=== PATIENT | female | born 1955 | race Caucasian/White ===

== ENCOUNTER → 2018-05-13 | Outpatient (CLI) | payer OTHER ==
--- NOTE | 2018-05-13 13:32 | XR ---
EXAMINATION TYPE: XR elbow limited RT DATE OF EXAM: 05/13/2018 COMPARISON: NONE HISTORY: Pain FINDINGS: Two views of the elbow demonstrate no pathologic joint effusion. No erosive changes. There is no acut e fracture or dislocation. Tiny density posterior to the olecranon within the soft tissues is seen. IMPRESSION: 1. Tiny bony density adjacent to the olecranon within the soft tissues. Tiny avulsion injury in the d ifferential diagnosis correlate with point tenderness. If warranted follow-up MRI could BE obtained.
--- NOTE | 2018-05-13 13:34 | XR ---
EXAMINATION TYPE: XR shoulder limited RT DATE OF EXAM: 05/13/2018 COMPARISON: NONE HISTORY: Pain TECHNIQUE: Two views are submitted. FINDINGS: The osseous structures are intact. There is no acute fracture or dislocation. The AC joint is maint ained. Diffuse osteopenia. IMPRESSION: 1. No acute process. If there is concern for rotator cuff injury correlate with MRI.
== END | disposition home or self-care (01) ==
LOC: RADXRMAIN 12:52
PROVIDERS: ATTEND Family Medicine
DX: M85.831 Other specified disorders of bone density and structure, right forearm (principal); M25.511 Pain in right shoulder

== ENCOUNTER 2018-07-20 04:19 | Emergency (ER) | payer OTHER ==
[2018-07-20 05:55] LABS: Basophils # (A) 0.1 k/uL (0-0.2); Basophils % (A) 1 %; Eosinophils # (A) 0.2 k/uL (0-0.7); Eosinophils % (A) 5 %; HCT 37.8 % (34.0-46.0); HGB 13.1 gm/dL (11.4-16.0); Lymphocytes # (A) 1.2 k/uL (1.0-4.8); Lymphocytes % (A) 29 %; MCH 32.5 pg (25.0-35.0); MCHC 34.7 g/dL (31.0-37.0); MCV 93.7 fL (80.0-100.0); Mean Platelet Volume 6.6; Monocytes # (A) 0.3 k/uL (0-1.0); Monocytes % (A) 7 %; Neutrophils # (A) 2.4 k/uL (1.3-7.7); Neutrophils % (A) 55 %; Platelet Count 259 k/uL (150-450); RBC 4.03 m/uL (3.80-5.40); RDW 12.8 % (11.5-15.5); WBC 4.4 k/uL (3.8-10.6)
[2018-07-20 06:10] LABS: ALT 23 U/L (9-52); AST 31 U/L (14-36); Albumin 3.9 g/dL (3.5-5.0); Alkaline Phosphatase 59 U/L (38-126); Anion Gap 6 mmol/L; Blood Urea Nitrogen 11 mg/dL (7-17); Calcium 9.5 mg/dL (8.4-10.2); Carbon Dioxide 24 mmol/L (22-30); Chloride 110 mmol/L (98-107); Glucose 93 mg/dL (74-99); Sodium 140 mmol/L (137-145); Total Bilirubin 0.8 mg/dL (0.2-1.3); Total Protein 6.5 g/dL (6.3-8.2)
[2018-07-20 06:19] LABS: Potassium 4.5 mmol/L (3.5-5.1)
[2018-07-20 06:31] LABS: Partial Thromboplastin Time 23.8 sec (22.0-30.0); Prothrombin Time 10.3 sec (9.0-12.0)
[2018-07-20 06:43] LABS: Creatine Kinase 39 U/L (30-135)
[2018-07-20 06:56] LABS: Creatine Kinase MB 0.6 ng/mL (0.0-2.4); Troponin I <0.012 ng/mL (0.000-0.034)
--- NOTE | 2018-07-20 07:18 | XR ---
EXAMINATION TYPE: XR chest 2V DATE OF EXAM: 07/20/2018 COMPARISON: NONE HISTORY: Chest pain TECHNIQUE: Frontal and lateral views of the chest are obtained. FINDINGS: There is no focal air space opacity, pleural effusion, or pneumothorax seen. The cardiac silhouette size is within normal limits. The osseous structures are intact. IMPRESSION: No acute cardiopulmonary process.
--- NOTE | 2018-07-20 09:12 | ED ---
Chest Pain HPI - General Chief Complaint: Chest Pain Stated Complaint: Chest Pain Time Seen by Provider: 07/20/18 07:51 Source: patient Mode of arrival: ambulatory Limitations: no limitations - History of Present Illness Initial Comments: This is a 62-year-old female the ER for evaluation. She presents today for evaluation of chest pain. Patient is anterior chest pain rating to back cough, symptoms 5-6 days. Patient was seen by family doctor, and sent to ER for evaluation. Patient has continued symptoms currently. No shortness of breath. No recent fever cough or congestion. Patient states she has had similar symptoms with prior diagnosis of bronchitis. Patient has no high blood pressure normal cholesterol no diabetes no significant family history of heart disease. MD Complaint: chest pain -: days(s) (5) Pain Location: substernal, right chest Pain Radiation: back Severity: mild Severity scale (1-10): 3 Quality: tightness Consistency: constant Improves With: nothing Worsens With: nothing Context: other (None) Other Symptoms: cough Treatments Prior to Arrival: none - Related Data Allergies Allergy/AdvReac Type Severity Reaction Status Date / Time No Known Allergies Allergy Verified 07/20/18 08:00 Review of Systems ROS Statement: Those systems with pertinent positive or pertinent negative responses have been documented in the HPI. ROS Other: All systems not noted in ROS Statement are negative. General Exam Limitations: no limitations General appearance: alert, in no apparent distress Head exam: Present: atraumatic, normocephalic, normal inspection Eye exam: Present: normal appearance, PERRL, EOMI. Absent: scleral icterus, conjunctival injection, periorbital swelling ENT exam: Present: normal exam, mucous membranes moist Neck exam: Present: normal inspection. Absent: tenderness, meningismus, lymphadenopathy Respiratory exam: Present: normal lung sounds bilaterally. Absent: respiratory distress, wheezes, rales, rhonchi, stridor Cardiovascular Exam: Present: regular rate, normal rhythm, normal heart sounds. Absent: systolic murmur, diastolic murmur, rubs, gallop, clicks GI/Abdominal exam: Present: soft, normal bowel sounds. Absent: distended, tenderness, guarding, rebound, rigid Extremities exam: Present: normal inspection, full ROM, normal capillary refill. Absent: tenderness, pedal edema, joint swelling, calf tenderness Back exam: Present: normal inspection Neurological exam: Present: alert, oriented X3, CN II-XII intact Psychiatric exam: Present: normal affect, normal mood Skin exam: Present: warm, dry, intact, normal color. Absent: rash Course - Reevaluation(s) Reevaluation #1: Medical record is reviewed noncontributory Patient spoke at length regarding symptoms and cause. Findings. Patient is in no acute distress, questions are answered Chest Pain MDM - MDM 62 female the ER for evasive chest pain patient has persistent dyspnea CT is negative for chest pain here in the emergency room. A patient is informed of results, CT EKG troponin negative. Patient can be discharged home Disposition Clinical Impression: Chest pain Disposition: HOME SELF-CARE Condition: Good Instructions: Chest Pain (ED) Is patient prescribed a controlled substance at d/c from ED?: No Referrals: Montserrat Loo MD [Primary Care Provider] - 1-2 days
--- NOTE | 2018-07-20 09:17 | CT ---
EXAMINATION TYPE: CT angio chest DATE OF EXAM: 07/20/2018 COMPARISON: Chest x-ray earlier today. HISTORY: Chest pains CT DLP: 215.6 mGycm. Automated Exposure Control for Dose Reduction was Utilized. CONTRAST: CTA scan of the thorax is performed with IV Contrast, patient injected with 100 mL of Isovue 370, pul monary embolism protocol. MIP Images are created on CT scanner and reviewed. FINDINGS: LUNGS: Mild biapical pleural/parenchymal scarring is seen. There is mild linear scarring in bilateral lung bases. No suspicious focal consolidation or groundglass opacity is seen. No suspicious parenchy mal nodules or masses are identified. No pleural effusion or pneumothorax is noted. MEDIASTINUM: There is satisfactory enhancement of the pulmonary artery and its branches, there is no CT evidence for pulmonary embolism. There are no greater than 1 cm hilar or mediastinal lymph nodes. No cardiomegaly or pericardial effusion is seen. OTHER: Please refer to same day CT abdomen and pelvis report for complete details on upper abdominal findings. IMPRESSION: No CT evidence for acute pulmonary embolism. Mild chronic parenchymal change without velarde spicious acute pulmonary process.
--- NOTE | 2018-07-20 09:20 | CT ---
EXAMINATION TYPE: CT abdomen pelvis w con DATE OF EXAM: 07/20/2018 HISTORY: Chest pains CT DLP: 340.6mGycm Automated Exposure Control for Dose Reduction was Utilized. CONTRAST: CT scan of the abdomen and pelvis is performed without oral but with IV Contrast, patient injected wi th 100 mL of Isovue 370. COMPARISON: None FINDINGS: LUNG BASES: Please refer to same day CTA chest report complete details on lung bases. LIVER/GB: No significant abnormality is appreciated. PANCREAS: No significant abnormality is seen. SPLEEN: No significant abnormality is seen. ADRENALS: No significant abnormality is seen. KIDNEYS: No significant abnormality is seen. BOWEL: Evaluation of bowel is noted suboptimal secondary to lack of enteric contrast and patient havi ng little intra-abdominal fat. There is no suspicious small or large bowel dilatation. Stomach is poo rly distended and thus suboptimally evaluated. Amount of fecal material is somewhat prominent through out portions of colon. Findings consistent with mild colonic fecal stasis. UTERUS/ADNEXA: Uterus is surgically absent or markedly atrophic. Few scattered pelvic phleboliths are noted. LYMPH NODES: No greater than 1cm abdominal or pelvic lymph nodes are appreciated. OSSEOUS STRUCTURES: No significant abnormality is seen. OTHER: No significant additional abnormality is seen. IMPRESSION: No significant acute finding is seen to account for patient's clinical symptoms.
[2018-07-20] MEDS ORDERED: DEXAMETHASONE SOD PHOSPHATE 10 MG/ML 1 ML VIAL IV STA (09:26)
[2018-07-20] MEDS ORDERED: KETOROLAC 30 MG/ML 1 ML VIAL IVP STA (09:26)
== END 2018-07-20 09:50 | disposition home or self-care (01) ==
LOC: EC 04:19
DX: R07.2 Precordial pain (principal); R05 Cough; Z79.890 Hormone replacement therapy
CPT/HCPCS: 36415; 80053; 82550; 82553; 83690; 83735; 84484; 85025; 85610; 85730; 71046; 71275; 74177; 99285; 96374; 96375; J1100; J1885; Q9967

== ENCOUNTER → 2018-11-02 | Outpatient (CLI) | payer MEDICARE, OTHER ==
[2018-11-02 16:34] LABS: Albumin 4.3 g/dL (3.80-4.90); Albumin/Globulin Ratio 2.39 (1.60-3.17); Anion Gap 7.3 mmol/L (4.00-12.00); Calcium 9.3 mg/dL (8.7-10.3); Carbon Dioxide 27.7 mmol/L (21.6-31.8); Globulin 1.8 g/dL (1.6-3.3); Potassium 4.3 mmol/L (3.5-5.5); Total Bilirubin 0.7 mg/dL (0.2-1.2); Total Protein 6.1 g/dL (6.2-8.2)
[2018-11-02 16:36] LABS: Vitamin D 25 Hydroxy 43.2 ng/mL (30.0-100.0)
[2018-11-02 17:10] LABS: Parathyroid Hormone Intact 42.7 pg/mL (14.0-72.0)
== END ==
LOC: LABWHC1 08:28
PROVIDERS: ATTEND Internal Medicine Endocrinology, Diabetes & Metabolism
DX: M81.0 Age-related osteoporosis without current pathological fracture (principal)
CPT/HCPCS: 36415; 80053; 82306; 82523; 83970

== ENCOUNTER → 2020-01-23 | Outpatient (CLI) | payer OTHER, MEDICARE | END | disposition home or self-care (01) | LOC: LABWHC1 10:26 | PROVIDERS: ATTEND Family Medicine | DX: Z03.818 Encounter for observation for suspected exposure to other biological agents ruled out (principal) | CPT/HCPCS: U0003; C9803 ==

== ENCOUNTER 2020-02-19 11:57 | Emergency (ER) | payer OTHER, MEDICARE ==
[2020-02-19 12:16] VITALS: TEMP 98
[2020-02-19] MEDS ORDERED: methylPREDNISolone SOD SUCCI 125 MG/2 ML VIAL IV STA (12:29)
[2020-02-19] MEDS ORDERED: FAMOTIDINE 20 MG/2 ML VIAL IV STA (12:30)
[2020-02-19] MEDS ORDERED: diphenhydrAMINE 50 MG/ML 1 ML VIAL IVP STA (12:30)
[2020-02-19] MEDS ORDERED: SODIUM CHLORIDE 0.9% 500 ML 500 ML IV STA (12:35)
[2020-02-19 12:38] VITALS: RESP 18
--- NOTE | 2020-02-19 13:24 | ED ---
Skin/Abscess/FB HPI - General Chief complaint: Skin/Abscess/Foreign Body Stated complaint: poss insect bite/hives & swelling Time Seen by Provider: 02/19/20 12:29 Source: patient Mode of arrival: ambulatory Limitations: no limitations - History of Present Illness Initial comments: 64yo female presenting today for chief complaint of rash. Patient states she was in her garden just 1 hour prior to presentation when she felt a pain in her left hand through her glove. Patient states that she noticed a welt. Patient believes she was stung by something. Patient states that she developed hives all over her body. She denied any wheezing difficulty breathing nausea vomiting or abdominal pain patient denies any lightheadedness or dizziness. Patient st ates that she does have a known ALLERGY to bees. Patient states that she does not carry an EpiPen. When rash spread patient decided as best she came to the emergency department for evaluation. Patient arrival appears well nontoxic in no acute distress. Patient is afebrile and denies rash prior to the incident. - Related Data Previous Rx's Medication Instructions Recorded EPINEPHrine (Auto Inject) [Epipen] 0.3 mg IM ONCE PRN 1 Days #2 pen 02/19/20 predniSONE 50 mg PO DAILY 4 Days #4 tab 02/19/20 Allergies Allergy/AdvReac Type Severity Reaction Status Date / Time No Known Allergies Allergy Verified 07/20/18 08:00 Review of Systems ROS Statement: Those systems with pertinent positive or pertinent negative responses have been documented in the HPI. ROS Other: All systems not noted in ROS Statement are negative. Past Medical History Past Medical History: Thyroid Disorder History of Any Multi-Drug Resistant Organisms: None Reported Past Surgical History: Hysterectomy Additional Past Surgical History / Comment(s): bladder Past Psychological History: No Psychological Hx Reported Smoking Status: Never smoker Past Alcohol Use History: None Reported Past Drug Use History: None Reported General Exam - General Exam Comments Initial Comments: General: The patient is awake and alert, in no distress Eye: Pupils are equal, round and reactive to light, extra-ocular movements are intact. No nystagmus. There is normal conjunctiva bilaterally. No signs of icterus. Ears, nose, mouth and throat: There are moist mucous membranes and no oral lesions. Neck: The neck is supple, there is no tenderness or JVD. Cardiovascular: There is a regular rate and rhythm. No murmur, rub or gallop is appreciated. Respiratory: Lungs are clear to auscultation, respirations are non-labored, breath sounds are equal. No wheezes, stridor, rales, or rhonchi. Gastrointestinal: Raised erythematous wheals and crops on patient's abdomen thighs and lower chest as well as his back. No vesicular lesions or bli stering. Soft, non-distended, non-tender abdomen without masses or organomegaly noted. There is no rebound or guarding present. Musculoskeletal: Normal ROM, no tenderness. Strength 5/5. Sensation intact. Pulses equal bilaterally 2+. Neurological: A&O x 3. CN II-XII intact, There are no obvious motor or sensory deficits. Coordination appears grossly intact. Speech is normal. Skin: Skin is warm and dry and no rashes or lesions are noted. Psychiatric: Cooperative, appropriate mood & affect, normal judgment. Limitations: no limitations Course Vital Signs 02/19/20 02/19/20 12:13 12:37 Temperature 98.0 F Pulse Rate 118 H 103 H Respiratory 20 18 Rate Blood Pressure 105/60 O2 Sat by Pulse 97 98 Oximetry Medical Decision Making - Medical Decision Making 64yofemale presenting today for chief complaint of rash. Patient states that she was stung by an insect on her and she states she is ALLERGIC to bees. There is obvious urticaria physical examination patient shows no signs of respiratory distress or surgical lip tongue swelling and no oral involvement. Patient does not have any complaints of nausea vomiting abdominal pain nor diarrhea. Patient VS stable. After Solu-Medrol Pepcid Benadryl patient states she felt much better on reevaluation the rash is noted to be significantly improved. Patient VS remain stable. Discussed case with Dr. Kelsey who is agreeable to care plan and discharge. Patient be placed on prednisone for 4 days to insure no delayed reaction as well as given an P pen in case needed for further future r eactions I did educate patient on the appropriate use and if the EpiPen is U she is to immediate return to the emergency department. Disposition Clinical Impression: Insect bite, Allergic reaction, Urticaria Disposition: HOME SELF-CARE Condition: Good Instructions (If sedation given, give patient instructions): Urticaria (ED), Anaphylaxis (ED) Additional Instructions: Please use medication as discussed. Please follow-up with family doctor in the next 2 days.. Please return to emergency room if the symptoms increase or worsen or for any other concerns. Prescriptions: EPINEPHrine (Auto Inject) [Epipen] 0.3 mg IM ONCE PRN 1 Days #2 pen PRN Reason: Anaphylaxis predniSONE 50 mg PO DAILY 4 Days #4 tab Is patient prescribed a controlled substance at d/c from ED?: No Referrals: Montserrat Loo MD [Primary Care Provider] - 1-2 days Time of Disposition: 13:24
[2020-02-19 13:54] VITALS: BP 101/64; PULSE 75
== END 2020-02-19 13:53 | disposition home or self-care (01) ==
LOC: EC 11:57
DX: L50.9 Urticaria, unspecified (principal); T63.481A Toxic effect of venom of other arthropod, accidental (unintentional), initial encounter
CPT/HCPCS: 99282; 96374; 96375 ×2; J1200; J2930

== ENCOUNTER → 2020-04-18 | Outpatient (CLI) | payer OTHER, MEDICARE ==
--- NOTE | 2020-04-22 08:58 | MM ---
Reason for exam: screening (asymptomatic). Last mammogram was performed 2 years and 10 months ago. History: Patient is postmenopausal and history of other cancer. Physical Findings: A clinical breast exam by your physician is recommended on an annual basis and results should be correlated with mammographic findings. MG Screening Mammo w CAD Bilateral CC and MLO view(s) were taken. Prior study comparison: June 08, 2017, mammogram. September 29, 2014, mammogram. The breast tissue is heterogeneously dense. This may lower the sensitivity of mammography. Finding: There are typically benign vascular calcifications in both breasts. No significant changes in finding since June 08, 2017 and September 29, 2014. ASSESSMENT: Benign, BI-RAD 2 RECOMMENDATION: Routine screening mammogram of both breasts in 1 year.
== END | disposition home or self-care (01) ==
LOC: RADMAMWWP 14:28
PROVIDERS: ATTEND Family Medicine
DX: Z12.31 Encounter for screening mammogram for malignant neoplasm of breast (principal)
CPT/HCPCS: 77067

== ENCOUNTER → 2020-07-09 | Outpatient (CLI) | payer OTHER, MEDICARE | END | disposition home or self-care (01) | LOC: LABWHC1 09:10 | PROVIDERS: ATTEND Family Medicine | DX: Z20.828 Contact with and (suspected) exposure to other viral communicable diseases (principal) | CPT/HCPCS: U0003; C9803 ==

== ENCOUNTER → 2020-08-09 | Outpatient (CLI) | payer OTHER, MEDICARE ==
[2020-08-09 17:05] LABS: Thyroid Peroxidase Antibodies 28.2 U/mL (0.0-60.0)
[2020-08-09 17:09] LABS: Progesterone 2.8 ng/mL
[2020-08-09 17:10] LABS: DHEA Sulfate 173.2 ug/dL (26.0-430.0)
[2020-08-09 17:26] LABS: African American GFR (CKD) 110.1 (60.0-200.0); Albumin 4.5 g/dL (3.80-4.90); Albumin/Globulin Ratio 2.65 (1.60-3.17); Anion Gap 5.8 mmol/L (4.00-12.00); BUN/Creat Ratio 18.33 Ratio (12.00-20.00); Calcium 9.4 mg/dL (8.7-10.3); Carbon Dioxide 29.2 mmol/L (21.6-31.8); Globulin 1.7 g/dL (1.6-3.3); Potassium 4.2 mmol/L (3.5-5.5); Total Bilirubin 0.7 mg/dL (0.3-1.2); Total Protein 6.2 g/dL (6.2-8.2)
[2020-08-09 17:34] LABS: Estradiol 24.6 pg/mL
== END | disposition home or self-care (01) ==
LOC: LABWHC1 08:38
PROVIDERS: ATTEND Internal Medicine Endocrinology, Diabetes & Metabolism
DX: E03.8 Other specified hypothyroidism (principal); M81.0 Age-related osteoporosis without current pathological fracture; E23.0 Hypopituitarism
CPT/HCPCS: 36415; 80053; 81596; 82306; 82627; 82670; 83970; 84144; 84402; 84403; 84436; 84443; 84480; 84481; 86376; 86800

== ENCOUNTER → 2020-08-09 | Outpatient (CLI) | payer OTHER, MEDICARE ==
--- NOTE | 2020-08-09 11:30 | BD ---
EXAMINATION TYPE: Axial Bone Density DATE OF EXAM: 08/09/2020 COMPARISON: NONE CLINICAL HISTORY: Height: 5 FT 4 1/2 IN Weight: 122 FRAX RISK QUESTIONS: Alcohol (3 or more units per day): NO Family History (Parent hip fracture): YES Glucocorticoids (More than 3mos): NO (Ex: prednisone, prednisolone, methylprednisolone, dexamethasone, and hydrocortisone). History of Fracture in Adulthood: NO Secondary Osteoporosis: 1. Type 1 Diabetes: NO 2. Hyperthyroidism: NO 3. Menopause before 45: NO 4. Malnutrition: NO 5. Chronic liver disease: NO Rheumatoid Arthritis: NO Current Tobacco Use: NO RISK FACTORS HISTORY OF: Family History of Osteoporosis: NO Active: YES Diet low in dairy products/other sources of calcium: NO Postmenopausal woman: AGE 50-53 Take estrogen and/or progesterone medications: PROGESTERONE How lon MONTHS Lost more than 2 inches in height since high school: YES MEDICATIONS: Thyroid Medications: YES Which medication: LEVOTHYROXINE How Lon YEARS Additional Medications: LEVOTHYROXINE, PROGESTERONE Additional History: RADIATED THYROID AGE 43 EXAM MEASUREMENTS: Bone mineral densitometry was performed using the [employer] System. Bone mineral density as measured about the Lumbar spine is: ----- L1-L4(G/cm2): 0.929 T Score Values are as follows: ----- L2: -2.3 ----- L3: -1.7 ----- L4: -1.9 ----- L1-L4: -2.1 PREV DONE ELSEWHERE Bone mineral density about the R hip (g/cm2): 0.696 Bone mineral density about the L hip (g/cm2): 0.709 T Score values are as follows: -----R Neck: -2.5 -----L Neck: -2.4 -----R Total: -2.0 -----L Total: -1.6 PREV DONE ELSEWHERE IMPRESSION: Osteopenia NOTE: T-SCORE=SD OF THE YOUNG ADULT MEAN.
== END | disposition home or self-care (01) ==
LOC: RADBDWWP 07:44
PROVIDERS: ATTEND Internal Medicine Endocrinology, Diabetes & Metabolism
DX: M85.80 Other specified disorders of bone density and structure, unspecified site (principal); M81.0 Age-related osteoporosis without current pathological fracture
CPT/HCPCS: 77080

== ENCOUNTER → 2020-10-04 | Outpatient (CLI) | payer OTHER, MEDICARE ==
--- NOTE | 2020-10-04 09:57 | US ---
EXAMINATION TYPE: US duplex aorta DATE OF EXAM: 10/04/2020 COMPARISON: NONE CLINICAL HISTORY: Z13.6 Encounter for screening for cardiovascular d. AAA screenin family hx. EXAM MEASUREMENTS: Abdominal Aorta: Proximal: 1.7 x 1.8 cm Mid: 1.1 x 1.3 cm Distal: 1.2 x 1.6 cm Bifurcation: .7cm .8cm There is atherosclerotic change of the aorta. IMPRESSION: No diagnostic evidence of aneurysm.
== END | disposition home or self-care (01) ==
LOC: RADUSWWP 09:33
PROVIDERS: ATTEND Family Medicine
DX: Z13.6 Encounter for screening for cardiovascular disorders (principal)
CPT/HCPCS: 93979

== ENCOUNTER → 2020-10-11 | Outpatient (CLI) | payer OTHER, MEDICARE ==
--- NOTE | 2020-10-11 16:15 | XR ---
Right RIBS HISTORY: R07.82 5 views the right ribs There is no evident displaced rib fracture. Bone mineralization is maintained. No evident pneumothora x or pleural effusion. There is a spinal curvature present. IMPRESSION: No acute abnormalities evident. Bone scan may be of increased sensitivity as indicated.
== END | disposition home or self-care (01) ==
LOC: RADXRMAIN 11:52
PROVIDERS: ATTEND Nurse Practitioner
DX: R07.82 Intercostal pain (principal)

== ENCOUNTER → 2020-11-15 | Outpatient (CLI) | payer OTHER, MEDICARE ==
--- NOTE | 2020-11-16 02:52 | MR ---
EXAMINATION TYPE: MR chest wo con DATE OF EXAM: 11/15/2020 COMPARISON: None HISTORY: Palpable masses right side of ribs, marker placed on 3 areas. Multiplanar multiecho imaging of the chest was performed without contrast. There are 3 markers placed on the right lateral side of the lower chest that is the area of concern. Liver has normal size and contour without a focal defect. There is no sign of pleural effusion. On th e STIR images there are 2 adjacent ribs in the lateral anterior lower chest on the right side that singh ve increased signal. There is also slight thickening and these could be healing rib fractures. These are seen on STIR coronal image 11 and 16. There is no pathologic fluid collection. Kidneys have normal size and contour. There is no hydronephr osis. There is no sign of ascites. IMPRESSION: 2 adjacent ribs on the right side have increased signal on the STIR images that could be healing nond isplaced fractures.
== END | disposition home or self-care (01) ==
LOC: RADMRIMAIN 20:31
PROVIDERS: ATTEND Family Medicine
DX: R22.2 Localized swelling, mass and lump, trunk (principal)
CPT/HCPCS: 71550

== ENCOUNTER → 2021-05-01 | Outpatient (CLI) | payer OTHER, MEDICARE | END | disposition home or self-care (01) | LOC: LABWHC1 16:18 | PROVIDERS: ATTEND Family Medicine | DX: Z20.822 Contact with and (suspected) exposure to COVID-19 (principal) | CPT/HCPCS: U0003; C9803 ==

== ENCOUNTER → 2021-11-04 | Outpatient (CLI) | payer MEDICARE, BC ==
[2021-11-04 14:18] LABS: Basophils # (A) 0.06 X 10*3/uL (0.00-0.10); Basophils % (A) 0.9 %; Eosinophils # (A) 0.04 X 10*3/uL (0.04-0.35); Eosinophils % (A) 0.6 %; HCT 37.7 % (37.2-46.3); HGB 12.8 g/dL (12.0-15.0); Immature Grans, Automated 0.2 %; Lymphocytes # (A) 1.52 X 10*3/uL (0.90-5.00); Lymphocytes % (A) 23.3 %; MCH 31.8 pg (27.0-32.0); MCV 93.5 fL (80.0-97.0); Monocytes # (A) 0.58 X 10*3/uL (0.20-1.00); Monocytes % (A) 8.9 %; NRBC Per 100 WBC 0 /100 WBCS (0.0-0.0); Neutrophils # (A) 4.32 X 10*3/uL (1.80-7.70); Neutrophils % (A) 66.1 %; Platelet Count 285 X 10*3/uL (140-440); RBC 4.03 X 10*6/uL (4.10-5.20); RDW 12.5 % (11.5-14.5); WBC 6.53 X 10*3/uL (4.50-10.00)
[2021-11-04 14:44] LABS: Thyroid Peroxidase Antibodies <9.0 U/mL (0.0-33.0)
[2021-11-04 14:56] LABS: ALT 16 U/L (8-44); AST 16 U/L (13-35); African American GFR (CKD) 115.3 (60.0-200.0); Albumin 4.4 g/dL (3.8-4.9); Alkaline Phosphatase 72 U/L (41-126); Blood Urea Nitrogen 7.6 mg/dL (9.0-27.0); Calcium 9.3 mg/dL (8.7-10.3); Carbon Dioxide 25.4 mmol/L (20.0-27.5); Chloride 101 mmol/L (96-109); GGT <10 U/L (0-38); Globulin 2.1 g/dL (1.6-3.3); Glucose 94 mg/dL (70-110); Iron 88 ug/dL (50-170); Non-African American GFR(CKD) 99.4 (60.0-200.0); Potassium 4.4 mmol/L (3.5-5.5); Sodium 135 mmol/L (135-145); Total Protein 6.5 g/dL (6.2-8.2)
[2021-11-04 15:08] LABS: C Reactive Protein, High Sens <0.150 mg/L (0.000-3.000)
[2021-11-04 16:17] LABS: Erythrocyte Sedimentation Rate 3 mm/Hr (0-30)
[2021-11-04 18:11] LABS: Insulin Level 5.3 mIU/mL (3.0-25.0)
[2021-11-05 10:49] LABS: Lead, Blood 0.5 ug/dL (<5.0)
[2021-11-06 08:29] LABS: Methylmalonic Acid 0.11 umol/L (<0.40)
== END | disposition home or self-care (01) ==
LOC: LABWHC1 08:57
PROVIDERS: ATTEND Internal Medicine
DX: Z00.00 Encounter for general adult medical examination without abnormal findings (principal); H43.399 Other vitreous opacities, unspecified eye; K58.0 Irritable bowel syndrome with diarrhea; M85.80 Other specified disorders of bone density and structure, unspecified site; Z86.19 Personal history of other infectious and parasitic diseases
CPT/HCPCS: 36415; 80053; 82306; 82525; 82607; 82728; 82747; 82977; 83036; 83090; 83525; 83540; 83655; 83735; 83825; 83921; 84255; 84439; 84443; 84481; 84482; 84630; 85025; 85652; 86141; 86376; 86800

== ENCOUNTER → 2021-12-04 | Outpatient (CLI) | payer MEDICARE, BC | END | disposition home or self-care (01) | LOC: LABWHC1 17:26 | PROVIDERS: ATTEND Internal Medicine | DX: K58.0 Irritable bowel syndrome with diarrhea (principal); Z86.19 Personal history of other infectious and parasitic diseases | CPT/HCPCS: 87338 ==

== ENCOUNTER 2023-03-15 19:12 | Emergency (ER) | payer MEDICARE, BC ==
--- NOTE | 2023-03-15 19:46 | ED ---
General Adult HPI - General Chief complaint: Urogenital Stated complaint: UTI Time Seen by Provider: 03/15/23 19:20 Source: patient, RN notes reviewed, old records reviewed Mode of arrival: ambulatory Limitations: no limitations - History of Present Illness Initial comments: This is a 67-year-old female who presents emergency Department stating about no on today she started having some dysuria and urinary frequency. Patient states she had a little bit of pain up in the suprapubic region as well. Patient denies any back pain. Patient denies any fever chills. Patient states she was mildly nauseated as well. - Related Data Previous Rx's Medication Instructions Recorded EPINEPHrine (Auto Inject) [Epipen] 0.3 mg IM ONCE PRN 1 Days #2 pen 02/19/20 predniSONE 50 mg PO DAILY 4 Days #4 tab 02/19/20 Sulfamethox-Tmp 800-160Mg [Bactrim 1 each PO Q12HR #14 tab 03/15/23 DS 800-160 mg] Allergies Allergy/AdvReac Type Severity Reaction Status Date / Time No Known Allergies Allergy Verified 03/15/23 19:18 Review of Systems ROS Statement: Those systems with pertinent positive or pertinent negative responses have been documented in the HPI. ROS Other: All systems not noted in ROS Statement are negative. Past Medical History Past Medical History: Thyroid Disorder History of Any Multi-Drug Resistant Organisms: None Reported Past Surgical History: Hysterectomy Additional Past Surgical History / Comment(s): bladder Past Psychological History: No Psychological Hx Reported Smoking Status: Never smoker Past Alcohol Use History: None Reported Past Drug Use History: None Reported General Exam - General Exam Comments Initial Comments: GENERAL: Patient is well-developed and well-nourished. Patient is nontoxic and well- hydrated and is in mild distress. ENT: Neck is soft and supple. No significant lymphadenopathy is noted. Oropharynx is clear. Moist mucous membranes. Neck has full range of motion without eliciting any pain. EYES: The sclera were anicteric and conjunctiva were pink and moist. Extraocular movements were intact and pupils were equal round and reactive to light. Eyelids were unremarkable. ABDOMEN: Soft and nontender with normal bowel sounds. SKIN: Skin is clear with no lesions or rashes and otherwise unremarkable. NEUROLOGIC: Patient is alert and oriented x3. Cranial nerves II through XII are grossly intact. Motor and sensory are also intact. Normal speech, volume and content. Symmetrical smile. MUSCULOSKELETAL: Normal extremities with adequate strength and full range of motion. Patient has no CVA tenderness LYMPHATICS: No significant lymphadenopathy is noted PSYCHIATRIC: Normal psychiatric evaluation. Limitations: no limitations Course Vital Signs 03/15/23 19:17 Temperature 97.8 F Pulse Rate 87 Respiratory 18 Rate Blood Pressure 109/68 O2 Sat by Pulse 98 Oximetry Medical Decision Making - Medical Decision Making Was pt. sent in by a medical professional or institution (, [facility], BRIDGE INSPECTOR, urgent care, hospital, or alf...) When possible be specific @ -No Did you speak to anyone other than the patient for history (EMS, parent, family, police, friend...)? What history was obtained from this source @ -No Did you review nursing and triage notes (agree or disagree)? Why? @ -I reviewed and agree with nursing and triage notes Were old charts reviewed (outside hosp., previous admission, EMS record, old EKG, old radiological studies, urgent care reports/EKG's, alf records)? Report findings @ -No old charts were reviewed Differential Diagnosis (chest pain, altered mental status, abdominal pain women, abdominal pain men, vaginal bleeding, weakness, fever, dyspnea, syncope, headache, dizziness, GI bleed, back pain, seizure, CVA, palpatations, mental health, musculoskeletal)? @ -Differential Abdominal Pain Women: Appendicitis, Cholecystitis, diverticulosis, ischemic bowel, pancreatitis, UTI, AAA, incarcerated hernia, bowel obstruction, constipation, inflammatory bowel, hepatitis, peptic ulcer disease, splenic infarction, perforated viscus, vulvitis, ovarian torsion, PID, kidney stone, placenta abruption, this is not meant to be an all-inclusive list EKG interpreted by me (3pts min.). @ -As above X-rays interpreted by me (1pt min.). @ -None done CT interpreted by me (1pt min.). @ -None done U/S interpreted by me (1pt. min.). @ -None done What testing was considered but not performed or refused? (CT, X-rays, U/S, l abs)? Why? @ -None What meds were considered but not given or refused? Why? @ -None Did you discuss the management of the patient with other professionals (professionals i.e. , PA, BRIDGE INSPECTOR, lab, RT, psych nurse, nephrology social worker, linoleum layer apprentice, teacher, president and chief commercial officer, manager case)? Give summary @ -No Was smoking cessation discussed for >3mins.? @ -No Was critical care preformed (if so, how long)? @ -No Were there social determinants of health that impacted care today? How? (Homelessness, low income, unemployed, alcoholism, drug addiction, transportation, low edu. Level, literacy, decrease access to med. care, half-way, rehab)? @ -No Was there de-escalation of care discussed even if they declined (Discuss DNR or withdrawal of care, Hospice)? DNR status @ -No What co-morbidities impacted this encounter? (DM, HTN, Smoking, COPD, CAD, Cancer, CVA, ARF, Chemo, Hep., AIDS, mental health diagnosis, sleep apnea, morbid obesity)? @ -None Was patient admitted / discharged? Hospital course, mention meds given and route, prescriptions, significant lab abnormalities, going to OR and other pertinent info. @ -Dehydration is given a shot of Rocephin emergency department and will be sent home on IV antibiotics. Patient is aware that she needs to follow up by the end of the week with the primary medical care doctor. Undiagnosed new problem with uncertain prognosis? @ -No Drug Therapy requiring intensive monitoring for toxicity (Heparin, Nitro, Insulin, Cardizem)? @ -No Were any procedures done? @ -No Diagnosis/symptom? @ -Urinary tract infection Acute, or Chronic, or Acute on Chronic? @ -Acute Uncomplicated (without systemic symptoms) or Complicated (systemic symptoms)? @ -Complicated Side effects of treatment? @ -none Exacerbation, Progression, or Severe Exacerbation] @ -no Poses a threat to life or bodily function? @ -no - Lab Data Lab Results 03/15/23 Range/Units 19:20 Urine Color Light Yellow Urine Appearance Cloudy H (Clear) Urine pH 5.5 (5.0-8.0) Ur Specific [place] 1.017 (1.001-1.035) Urine Protein Trace H (Negative) Urine Glucose (UA) Negative (Negative) Urine Ketones Negative (Negative) Urine Blood Large H (Negative) Urine Nitrite Negative (Negative) Urine Bilirubin Negative (Negative) Urine Urobilinogen <2.0 (<2.0) mg/dL Ur Leukocyte Esterase Large H (Negative) Urine RBC >182 H (0-5) /hpf Urine WBC 31 H (0-5) /hpf Urine WBC Clumps Rare H (None) /hpf Ur Squamous Epith Cells <1 (0-4) /hpf Urine Mucus Rare H (None) /hpf Disposition Clinical Impression: Urinary tract infection Disposition: HOME SELF-CARE Condition: Good Instructions (If sedation given, give patient instructions): Urinary Tract Infection in Women (ED) Prescriptions: Sulfamethox-Tmp 800-160Mg [Bactrim DS 800-160 mg] 1 each PO Q12HR #14 tab Is patient prescribed a controlled substance at d/c from ED?: No Referrals: Montserrat Loo MD [Primary Care Provider] - 1-2 days Time of Disposition: 20:24
[2023-03-15 20:08] LABS: Appearance,Urine Cloudy (Clear); Bilirubin,Urine Negative (Negative); Blood,Urine Large (Negative); Color,Urine Light Yellow; Glucose,Urine (UA) Negative (Negative); Ketones,Urine Negative (Negative); Leukocyte Esterase,Urine Large (Negative); Mucus,Urine Rare /hpf; Nitrite,Urine Negative (Negative); PH, Urine 5.5 (5.0-8.0); Protein,Urine Trace (Negative); RBC,Urine >182 /hpf (0-5); Specific Gravity,Urine 1.017 (1.001-1.035); Squamous Epithelial Cell,Urine <1 /hpf (0-4); Urobilinogen,Urine <2.0 mg/dL (<2.0); WBC,Urine 31 /hpf (0-5)
[2023-03-15] MEDS ORDERED: cefTRIAXone 1,000 MG VIAL (IM USE) IM STA (20:15)
[2023-03-15 20:58] VITALS: BP 136/70; PULSE 78; RESP 20; TEMP 98.7
== END 2023-03-15 20:58 | disposition home or self-care (01) ==
LOC: EC 19:12
DX: N39.0 Urinary tract infection, site not specified (principal); B96.20 Unspecified Escherichia coli [E. coli] as the cause of diseases classified elsewhere
CPT/HCPCS: 81001; 87086; 87077; 87186; 99283; 96372; J0696

== ENCOUNTER → 2023-07-28 | Outpatient (CLI) | payer MEDICARE, BC ==
--- NOTE | 2023-07-28 17:05 | P.SLEEP ---
History of Present Illness DATE: 07/28/2023 CONSULTATION/NEW PATIENT EVALUATION HISTORY OF PRESENT ILLNESS/SLEEP-WAKE EVALUATION: 67 year old lady had been evaluated in the sleep center for possible obstructive sleep apnea hypopnea syndrome and insomnia problems. SLEEP SCHEDULE: Usually sleep schedule from 11 PM to 7 AM 7 days a week. Some nights Dokes wake her up about 5 AM. FALLING ASLEEP: Patient does have problems with falling asleep, although no TV in bedroom. DURING SLEEP: Patient usually sleeps on the side position with snoring and awake nings from sleep several times with nocturia and grinding teeth. No history of hypnogogical hallucinations, sleep paralysis, or cataplexy. DURING THE DAY/WAKE STATE: In the morning patient wake up tired, has episodes of irritability. [place] sleepiness scale is significantly increased to 17. Patient may take 1 nap at 3 PM. PAST MEDICAL HISTORY: Hypothyroidism. PAST SURGICAL HISTORY: Partial hysterectomy. MEDICATIONS: Progesterone 200 mg at nighttime, Synthroid 100 g once a day, magnesium at nighttime, melatonin. SOCIAL HISTORY: Positive for's smoking for about 12 years stopped about 30 years ago, alcohol consumption none. FAMILY HISTORY: Angina. REVIEW OF SYSTEMS: Snoring, awakenings from sleep, sleepiness during the day and difficulties to initiate sleep at night. No fevers. No double vision. No recent chest pain. No shortness of breath. No abdominal pain. No bleeding episodes. No blood in urine. No seizure episodes. PHYSICAL EXAMINATION: GENERAL: A pleasant patient without any distress. VITAL SIGNS: BP 106/59 , HR 89 , RR 12 , weight 136.2 pounds, height 5 foot 6.5 inches, body mass index 21.6 . HEENT: PERRLA, EOMI. Evaluation of oropharynx showed tongue protrudes midline, low position of soft palate Mallampati 4, retrognathia 3 mm. NECK: Supple. No JVD. Thyroid is not palpable. 13-1/4 inches in circumference. LUNGS: Clear to percussion and to auscultation. Good air exchange. No wheezing or rhonchi. HEART: S1, S2 regular. No murmurs, gallops or rubs. ABDOMEN: Soft and nontender. Bowel sounds are present. No organomegaly appreciated. EXTREMITIES: No clubbing or cyanosis. FARM HAND: Awake, alert, and oriented x3. Cranial nerves 2 to 7 intact. There is no fasciculation or atrophy noted. No focal deficits observed. ASSESSMENT: 1. Snoring, awakenings from sleep, extremely low position of soft palate Mallampati 4, retrognathia 3 mm. Possible obstructive sleep apnea hypopnea syndrome. 2. Difficulties to initiate sleep. Psychophysiological insomnia. 3. Hypothyroidism. 4. Status post partial hysterectomy. 5 status post tonsillectomy. PLAN: 1. Polysomnography for evaluation of patient's breathing during sleep. 2. I discussed with patient psychological techniques for treatment of insomnia including stimulus control, paradoxical intentioned, weight time, no watching clock. 3. Preferable position during sleep on the side. 4. No driving if patient feels any sleepiness. Patient is aware of civil and criminal liability for unsafe driving. 5. Sleep hygiene with regular sleep time for at least 7.5-8 hours . 6. Following plan after reading sleep study Thank you very much for referring this patient for consultation. Sincerely, Sagar Browning MD, PhD, FAASM. Diplomat of [place] [employer], Sleep Medicine Board by [place] [employer] [place] [employer] [facility] [place] Past Medical History Past Medical History: Thyroid Disorder History of Any Multi-Drug Resistant Organisms: None Reported Past Surgical History: Hysterectomy Additional Past Surgical History / Comment(s): bladder Past Psychological History: No Psychological Hx Reported Smoking Status: Never smoker Past Alcohol Use History: None Reported Past Drug Use History: None Reported Medications and Allergies Home Medications Medication Instructions Recorded Confirmed Type EPINEPHrine (Auto Inject) [Epipen] 0.3 mg IM ONCE PRN 1 Days #2 pen 02/19/20 Rx predniSONE 50 mg PO DAILY 4 Days #4 tab 02/19/20 Rx Sulfamethox-Tmp 800-160Mg [Bactrim 1 each PO Q12HR #14 tab 03/15/23 Rx DS 800-160 mg] Allergies Allergy/AdvReac Type Severity Reaction Status Date / Time No Known Allergies Allergy Verified 03/15/23 19:18 Sleep Note - Sleep Note Sleep Note: Temperature: Pulse Rate: Respiratory Rate: Blood Pressure: SpO2: Height: Weight: BMI: Neck Circumference:
== END ==
LOC: 3 N SLEEP 15:59
PROVIDERS: ATTEND Internal Medicine
DX: R06.83 Snoring (principal); F51.04 Psychophysiologic insomnia; E03.9 Hypothyroidism, unspecified; Z98.890 Other specified postprocedural states; Z90.89 Acquired absence of other organs; Z90.710 Acquired absence of both cervix and uterus; Z79.890 Hormone replacement therapy; Z87.891 Personal history of nicotine dependence
CPT/HCPCS: 99211

== ENCOUNTER → 2023-12-10 | Outpatient (CLI) | payer MEDICARE, BC ==
--- NOTE | 2023-12-13 09:46 | MM ---
Reason for Exam: Screening (asymptomatic). Last mammogram was performed 2 year(s) and 1 month(s) ago. Patient History: Menarche at age 10. Hysterectomy at age 43. Postmenopausal. Other cancer. Risk Values: Shanthi 5 year model risk: 1.2%. NCI Lifetime model risk: 3.7%. Prior Study Comparison: 09/29/2014 Screening Mammogram, Unknown. 06/08/2017 Screening Mammogram, Unknown. 04/18/2020 Bilateral Screening Mammogram, [facility]. 10/24/2021 Bilateral Screening Mammogram, [facility]. Tissue Density: There are scattered areas of fibroglandular density. Findings: Analyzed By CAD. Right breast: There is no suspicious group of microcalcifications or new suspicious mass. Left breast: There is no suspicious group of microcalcifications or new suspicious mass. Overall Assessment: Negative, BI-RAD 1 Management: Screening Mammogram of both breasts in [address] [facility] will attempt to contact patient to return for supplemental views and ultrasound if indicated. Patient should continue monthly self-breast exams. A clinical breast exam by your physician is recommended on an annual basis. This exam should not preclude additional follow-up of suspicious palpable abnormalities. Note on Shanthi scores and lifetime risk: 1. A Shanthi score greater than 3% is considered moderate risk. If this is the case, consider specialist referral to assess eligibility for a risk reducing agent. 2. If overall lifetime risk for the development of breast cancer is 20% or higher, the patient may qualify for future screening with alternating mammogram and breast MRI. Electronically signed and approved by: Franklin Hunt DO
== END | disposition home or self-care (01) ==
LOC: RADMAMWWP 08:35
PROVIDERS: ATTEND Family Medicine
DX: Z12.31 Encounter for screening mammogram for malignant neoplasm of breast (principal); Z78.0 Asymptomatic menopausal state
CPT/HCPCS: 77063; 77067

== ENCOUNTER → 2023-12-21 | Outpatient (CLI) | payer MEDICARE, BC | END | disposition home or self-care (01) | LOC: LABWHC1 08:25 | PROVIDERS: ATTEND Dietitian, Registered | DX: E03.9 Hypothyroidism, unspecified (principal); E61.9 Deficiency of nutrient element, unspecified; T78.40XA Allergy, unspecified, initial encounter; R14.0 Abdominal distension (gaseous); R14.3 Flatulence | CPT/HCPCS: 36415 ==

== ENCOUNTER → 2023-12-23 | Outpatient (CLI) | payer MEDICARE, BC ==
[2023-12-23 15:39] LABS: HCT 39.3 % (37.2-46.3); HGB 13.5 g/dL (12.0-15.0); MCH 32.7 pg (27.0-32.0); MCHC 34.4 g/dL (32.0-37.0); MCV 95.2 FL (80.0-97.0); Mean Platelet Volume 9.4 FL (9.5-12.2); NRBC Per 100 WBC 0 X 10*3/uL (0.00-0.01); Platelet Count 270 X 10*3/uL (140-440); RBC 4.13 X 10*6/uL (4.10-5.20); RDW 12.9 % (11.5-14.5); WBC 4.66 X 10*3/uL (4.50-10.00)
[2023-12-23 15:40] LABS: Basophils # (A) 0.04 X 10*3/uL (0.00-0.10); Basophils % (A) 0.9 %; Eosinophils # (A) 0.15 X 10*3/uL (0.04-0.35); Eosinophils % (A) 3.2 %; Lymphocytes # (A) 1.34 X 10*3/uL (0.90-5.00); Lymphocytes % (A) 28.8 %; Monocytes # (A) 0.48 X 10*3/uL (0.20-1.00); Monocytes % (A) 10.3 %; Neutrophils # (A) 2.64 X 10*3/uL (1.80-7.70); Neutrophils % (A) 56.6 %
[2023-12-23 16:04] LABS: % Iron Saturation 55.29 (12.00-45.00); Glucose 90 mg/dL (70-110); Iron 162 UG/DL (50-170); Magnesium 2.1 mg/dL (1.5-2.4); Total Iron Binding Capacity 293 UG/DL (228-460); Uric Acid 2.1 mg/dL (2.9-7.7)
[2023-12-23 16:09] LABS: Appearance,Urine Clear (Clear); Bilirubin,Urine Negative (Negative); Blood,Urine Negative (Negative); Color,Urine Yellow (Yellow); Ketones,Urine Negative (Negative); Nitrite,Urine Negative (Negative); Specific Gravity,Urine 1.006 (1.001-1.030); Urobilinogen,Urine 0.2 E.U./DL
[2023-12-23 16:11] LABS: C Reactive Protein, High Sens <0.150 mg/L (0.000-3.000)
[2023-12-23 16:16] LABS: Bacteria,Urine None Seen (None Seen)
[2023-12-23 16:31] LABS: Erythrocyte Sedimentation Rate 6 mm/Hr (0-30)
[2023-12-23 18:24] LABS: Insulin Level 3.5 mIU/mL (3.0-25.0)
[2023-12-23 19:43] LABS: Clam IgE <0.10 kU/L; Codfish IgE <0.10 kU/L; Egg White IgE <0.10 kU/L; Peanut IgE <0.10 kU/L; Scallop IgE <0.10 kU/L; Shrimp IgE <0.10 kU/L; Soybean IgE <0.10 kU/L; Walnut IgE (Food) <0.10 kU/L
[2023-12-24 13:58] LABS: Zinc, Serum 92 ug/dL (60-130)
== END | disposition home or self-care (01) ==
LOC: LABWHC1 07:57
PROVIDERS: ATTEND Dietitian, Registered
DX: Z13.1 Encounter for screening for diabetes mellitus (principal); D89.89 Other specified disorders involving the immune mechanism, not elsewhere classified; J30.5 Allergic rhinitis due to food; D50.9 Iron deficiency anemia, unspecified; Z83.3 Family history of diabetes mellitus; E11.65 Type 2 diabetes mellitus with hyperglycemia; E03.9 Hypothyroidism, unspecified; E06.3 Autoimmune thyroiditis; E27.40 Unspecified adrenocortical insufficiency; D51.9 Vitamin B12 deficiency anemia, unspecified; D52.9 Folate deficiency anemia, unspecified; E83.89 Other disorders of mineral metabolism; K90.0 Celiac disease; R30.0 Dysuria; R53.82 Chronic fatigue, unspecified; R70.0 Elevated erythrocyte sedimentation rate; R82.90 Unspecified abnormal findings in urine; R79.82 Elevated C-reactive protein (CRP); T78.1XXA Other adverse food reactions, not elsewhere classified, initial encounter
CPT/HCPCS: 36415; 81001; 82525; 82533; 82607; 82728; 82785; 82947; 83036; 83090; 83525; 83540; 83550; 83735; 84432; 84482; 84550; 84630; 85025; 85652; 86003; 86038; 86141; 86376; 86800

== ENCOUNTER → 2024-01-11 | Outpatient (CLI) | payer MEDICARE, BC | END | disposition home or self-care (01) | LOC: LABWHC1 10:50 | PROVIDERS: ATTEND Dietitian, Registered | DX: E61.2 Magnesium deficiency (principal) | CPT/HCPCS: 36415; 83735 ==

== ENCOUNTER → 2024-01-27 | Outpatient (CLI) | payer MEDICARE, BC ==
[2024-01-27 15:36] LABS: ALT 18 U/L (8-44); AST 22 U/L (13-35); Albumin 4.3 g/dL (3.8-4.9); Albumin/Globulin Ratio 1.95 Ratio (1.60-3.17); Alkaline Phosphatase 72 U/L (41-126); BUN/Creat Ratio 16.33 Ratio (12.00-20.00); Blood Urea Nitrogen 9.8 mg/dL (9.0-27.0); Calcium 9.3 mg/dL (8.7-10.3); Carbon Dioxide 23.1 mmol/L (21.6-31.8); Chloride 104 mmol/L (96-109); Globulin 2.2 g/dL (1.6-3.3); Glucose 89 mg/dL (70-110); Potassium 4.5 mmol/L (3.5-5.5); Sodium 138 mmol/L (135-145); Total Bilirubin 0.6 mg/dL (0.3-1.2); Total Protein 6.5 g/dL (6.2-8.2)
== END | disposition home or self-care (01) ==
LOC: LABWHC1 09:25
PROVIDERS: ATTEND Internal Medicine Endocrinology, Diabetes & Metabolism
DX: E03.8 Other specified hypothyroidism (principal)
CPT/HCPCS: 36415; 80053; 84443

== ENCOUNTER → 2024-05-05 | Outpatient (CLI) | payer MEDICARE, BC ==
--- NOTE | 2024-05-05 11:08 | CT ---
EXAMINATION TYPE: CT iac wo con CT DLP: 150.0 mGycm, Automated exposure control for dose reduction was used. DATE OF EXAM: 05/05/2024 10:21 AM INDICATION: Patient age:Female; 68 years old; Reason for study: H70.11 CHRONIC MASTOIDITIS; PHH. COMPARISON: None. TECHNIQUE: Multiple thin axial images were obtained through the temporal bones and internal auditory canals. Additional coronal reformatted images were obtained. No IV contrast was utilized. FINDINGS: Right Temporal Bone: External Ear: The external auditory canal is unremarkable, The tympanic membrane is present and unrem arkable. Middle Ear: The ossicles demonstrate a normal appearance. Prussak's space is clear and the scutum i s intact. There is no evidence of osseous erosion and the tegmen tympani is intact. Inner Ear: Cochlea, vestibule and semi circular canals are unremarkable. No evidence of carotid ofelia l dehiscence. Two and a half turns of the cochlea are identified. The vestibular aqueduct is not enl arged. Mastoid Air Cells: The mastoid air cells are clear. The tegmen mastoideum is intact. The aditus ad an trum is clear. Internal Auditory Canal: The internal auditory canal is unremarkable. Left Temporal Bone: External Ear: The external auditory canal is unremarkable, The tympanic membrane is present and unrem arkable. Middle Ear: The ossicles demonstrate a normal appearance. Prussak's space is clear and the scutum i s intact. There is no evidence of osseous erosion and the tegmen tympani is intact. Inner Ear: Cochlea, vestibule and semi circular canals are unremarkable. No evidence of carotid ofelia l dehiscence. Two and a half turns of the cochlea are identified. The vestibular aqueduct is not enl arged. Mastoid Air Cells: The mastoid air cells are clear. The tegmen mastoideum is intact. The aditus ad an trum is clear. Internal Auditory Canal: The internal auditory canal is unremarkable. IMPRESSION: Normal internal auditory canal study. [facility], , 05/05/2024 11:06 AM
== END | disposition home or self-care (01) ==
LOC: RADCTMAIN 09:47
PROVIDERS: ATTEND Otolaryngology
DX: H70.11 Chronic mastoiditis, right ear (principal)
CPT/HCPCS: 70480